=== PATIENT | female | born 1985 | race Caucasian/White ===

== ENCOUNTER 2022-02-14 17:14 | Emergency (ER) | payer SELFPAY ==
[~2022-02-14] VITALS: Ht 165.1 cm; Wt 63.5 kg
--- NOTE | 2022-02-14 17:20 | NUR ---
pt bibra from outside a store. bystander called 911 for alcohol intoxication, pt is responsive to verbal stimulation, slurring of speech. gowned and placed on monitor. awaiting md kc.
--- NOTE | 2022-02-14 17:22 | NUR ---
dr bell at bedside for eval.
--- NOTE | 2022-02-14 17:33 | NUR ---
patient BG 68. dr bell aware.
[2022-02-14] MEDS ORDERED: DEXTROSE 50%-WATER 50 ML DISP.SYRIN ONE (17:36)
[2022-02-14] MEDS: DEXTROSE 50%-WATER 50 ML DISP.SYRIN IVP ONE (17:44)
--- NOTE | 2022-02-14 18:43 | NUR ---
BS 114MG/DL UPON RECHECK
--- NOTE | 2022-02-14 22:25 | NUR ---
Patient discharged to home in stable condition. Written and verbal after care instructions given. Patient verbalizes understanding of instruction.
[2022-02-14 23:59] VITALS: BP 115/68
== END 2022-02-14 22:25 | disposition home or self-care (01) ==
LOC: ER 17:33
DX: F10.129 Alcohol abuse with intoxication, unspecified (principal); Z59.00 Homelessness unspecified; Y90.9 Presence of alcohol in blood, level not specified
CPT/HCPCS: 82962-TC